=== PATIENT | female | born 1985 | race Caucasian/White ===

== ENCOUNTER 2017-06-25 10:09 | Inpatient (IN) | payer OTHER ==
[~2017-06-25] VITALS: Ht 172.7 cm; Wt 3.2 kg
[2017-06-25] MEDS ORDERED: PRENATAL TABLE1 EAC3 PO (10:48)
[2017-06-25] MEDS ORDERED: FOLIC ACID0.8 M1 PO (10:49)
[2017-06-25] MEDS ORDERED: IRON325 MG PO (10:49)
== END 2017-06-28 12:00 | disposition home or self-care (01) | DRG 766 ==
LOC: LDR 10:09 → OB/GYN 10:09 → O/R 13:45 → OB/GYN 15:20
PROVIDERS: Obstetrics & Gynecology Obstetrics
PROC: 4A0HXCZ Measurement of Products of Conception, Cardiac Rate, External Approach (ICD-10-PCS; 2017-06-25)
PROC: 10D00Z1 Extraction of Products of Conception, Low, Open Approach (ICD-10-PCS; principal; 2017-06-25 13:00)
DX: O34.211 Maternal care for low transverse scar from previous cesarean delivery (principal); Z3A.39 39 weeks gestation of pregnancy; Z37.0 Single live birth

== ENCOUNTER 2025-01-14 09:47 | Inpatient (IN) | payer OTHER ==
[~2025-01-14] VITALS: Ht 172.7 cm; Wt 55.8 kg
[2025-01-14 09:35] LABS: BASO % 0.5 % (0.1-1.2); EOS # 0.09 (0.04-0.54); EOS % 1.6 % (0.7-7.0); LYMPH # 1.45 (1.18-3.74); LYMPH % 25.8 % (19.3-53.1); MEAN PLATELET VOLUME 9.00 fl (9.4-12.4); MONO # 0.48 (0.24-0.82); MONO % 8.5 % (4.7-12.5); NEUT # 3.57 (1.56-6.13); NEUT % 63.4 % (34.0-71.1); RED CELL DISTRIBUTION WIDTH 20.9 % (11.6-14.4)
[2025-01-14 09:39] LABS: URINE APPEARANCE Clear; URINE BILIRRUBIN Negative (NEGATIVE); URINE BLOOD Negative; URINE COLOR Yellow; URINE GLUCOSE Negative (NEGATIVE); URINE KETONE Negative (NEGATIVE); URINE LEUKOCYTE Negative; URINE NITRATE Negative; URINE PROTEIN Negative (NEGATIVE); URINE UROBILINOGEN 0.2 E.U./dl
[2025-01-14 09:40] LABS: URINE BACTERIA 22.7 uL (0.0-1933); URINE EPITHELIAL CELLS 3.9 uL (0.0-38.8); URINE RBC 5.1 uL (0.0-20.8)
[2025-01-14 09:41] LABS: URINE CAST 0.00 uL (0.0-1.40); URINE WBC 1.2 uL (0.0-23.2)
[2025-01-14 09:45] VITALS: BP 104/62
[~2025-01-14 09:47] MED LIST: FOLIC ACID0.8 M1 PO; IRON325 MG PO; PRENATAL TABLE1 EAC3 PO
[2025-01-14 09:55] LABS: INR 1.03
[2025-01-14 10:06] LABS: ALT/SGPT 27.0 U/L (12-78); AST/SGOT 16.0 U/L (15-37); BILIRUBIN TOTAL 0.26 mg/dL (0.3-1.2); BUN CREA RATIO 20.0 (7.0-25.0); CREATININE SERUM 0.64 mg/dL (0.55-1.02); GFR 103.85; GLOBULINA 3.3 G/DL (2.4-3.5); GLUCOSE FASTING 86.0 mg/dL (65-100); OSMOLALITY SERUM 281.0 MOSM/KG (275-295)
[2025-01-17] MEDS ORDERED: POVIDONE-IODINE 118 ML BOTT TOP ONE (15:00)
[2025-01-17] MEDS ORDERED: CEFOXITIN SODIUM 2,000 MG VIAL IV ONE (15:00)
[2025-01-17] MEDS ORDERED: SUGAMMADEX SODIUM 200 MG/2 ML VIAL IV ONE (16:45)
[2025-01-17] MEDS ORDERED: PROMETHAZINE HCL 25 MG/ML AMPUL IM SCH (16:59)
[2025-01-17] MEDS ORDERED: MORPHINE SULFATE 4 MG/ML CARTRIDGE IV SCH (17:00)
[2025-01-17] MEDS ORDERED: MORPHINE SULFATE 4 MG/ML VIAL IV ONE ×2 (17:05→17:35)
[2025-01-17] MEDS ORDERED: CEFOXITIN SODIUM 2,000 MG VIAL IV SCH (18:00)
[2025-01-17] MEDS ORDERED: PROMETHAZINE HCL 50 MG/ML AMPUL IM SCH (20:00)
[2025-01-17 21:09] VITALS: BP 127/71
[2025-01-18] VITALS: BP 109/65
[2025-01-18 06:28] LABS: BASO % 0.3 % (0.1-1.2); EOS # 0.00 (0.04-0.54); EOS % 0.0 % (0.7-7.0); LYMPH # 0.82 (1.18-3.74); LYMPH % 8.4 % (19.3-53.1); MEAN PLATELET VOLUME 9.20 fl (9.4-12.4); MONO # 1.01 (0.24-0.82); MONO % 10.3 % (4.7-12.5); NEUT # 7.87 (1.56-6.13); NEUT % 80.6 % (34.0-71.1); RED CELL DISTRIBUTION WIDTH 19.9 % (11.6-14.4)
[2025-01-18 08:21] VITALS: BP 124/77
[2025-01-18] MEDS ORDERED: OxyCODONE HCL 5 MG TABLET (ROXICODONE) PO PRN (08:30)
[2025-01-18 12:33] VITALS: BP 128/81
[2025-01-18 17:11] VITALS: BP 132/81
[2025-01-18 20:24] VITALS: BP 120/76
[2025-01-19] VITALS: BP 121/77
[2025-01-19 08:16] VITALS: BP 119/72
[2025-01-19 19:26] VITALS: BP 100/87
[2025-01-20 00:56] VITALS: BP 107/71
[2025-01-20 08:35] VITALS: BP 103/65; O2SAT 98
[2025-01-20 12:50] VITALS: BP 105/72; O2SAT 99
[2025-01-20 13:26] VITALS: BP 105/72; O2SAT 99
[2025-01-20 16:00] VITALS: BP 112/71
== END 2025-01-20 17:46 | disposition home or self-care (01) | DRG 743 ==
LOC: O/R 01-17 08:00 → OB/GYN 01-17 08:00 → SURH 01-17 08:28 → OB/GYN 01-17 17:51
PROVIDERS: ADMIT Obstetrics & Gynecology Obstetrics; ATTEND Obstetrics & Gynecology Obstetrics
PROC: 0UT70ZZ Resection of Bilateral Fallopian Tubes, Open Approach (ICD-10-PCS; 2025-01-17)
PROC: 0UT90ZZ Resection of Uterus, Open Approach (ICD-10-PCS; principal; 2025-01-17 13:45)
DX: N80.03 Adenomyosis of the uterus (principal); N72 Inflammatory disease of cervix uteri